=== PATIENT | male | born 1950 ===

== ENCOUNTER 2021-12-25 10:54 | Observation (INO) | payer OTHER ==
[~2021-12-25] VITALS: Ht 185.4 cm; Wt 91.0 kg
--- NOTE | 2021-12-25 10:54 | NUR ---
PT TO ROOM 3 VIA WC ABLE TO TRANSFER SELF TO STRETCHER.
[2021-12-25 11:33] LABS: HEMATOCRIT 44.6 % (39.0-50.0); HEMOGLOBIN 13.8 g/dl (14.0-18.0); IMMATURE GRANULOCYTES 0.1 % (0.0-5.0); MEAN CELL VOLUME 96.3 fL CALC (80.0-100.0); MEAN CORPUSCULAR HGB 29.8 pG CALC (26.0-32.0); MEAN CORPUSCULAR HGB CONC 30.9 g/dL CAL (32.0-36.0); NEUT# 4.72 thou/uL (1.82-7.42); RED BLOOD COUNT 4.63 mill/uL (4.70-6.10); RED CELL DISTRI WIDTH 13.7 % (11.5-15.5)
[2021-12-25] MEDS ORDERED: BACLOFEN10 MG PO (11:43)
[2021-12-25] MEDS ORDERED: LISINOPRIL10 MG PO (11:44)
[2021-12-25 11:46] LABS: ALBUMIN 4.2 g/dL (3.2-5.0); ALKALINE PHOSPHATASE 69 u/l (38-126); ANION GAP 13 (6-22 (CALC)); BILIRUBIN, TOTAL 0.4 mg/dL (0.0-1.4); BUN 26 mg/dL (8-23); BUN/CREATININE RATIO 25 (12-20 (CALC)); CARBON DIOXIDE 25 mmol/l (22-30); CHLORIDE 106 mmol/l (95-108); GFR > 60 ML/MIN (>=60 (CALC)); GFR FOR AFR.AMER. > 60 ML/MIN (>=60 (CALC)); POTASSIUM 4.5 mmol/l (3.5-5.1); SGOT/AST 20 u/l (19-48); SODIUM 140 mmol/l (137-146); TOTAL PROTEIN 7.2 g/dL (6.3-8.2)
[2021-12-25] MEDS ORDERED: LORATADINE10 M1 PO (11:47)
[2021-12-25] MEDS ORDERED: MELOXICAM7.5 MG PO (11:48)
[2021-12-25] MEDS ORDERED: LIPITOR20 MG PO (11:48)
--- NOTE | 2021-12-25 11:50 | NUR ---
Pt. sitting up in bed awake and alert. No distress noted. Officers x2 @ bedside.
[2021-12-25 11:59] LABS: MYOGLOBIN 39 ng/mL (0 - 121)
--- NOTE | 2021-12-25 12:30 | NUR ---
Pt. sitting up in bed awake and alert. No distress noted.
--- NOTE | 2021-12-25 13:30 | NUR ---
Pt. laying in bed awake and alert. Skin w/p/d. Resp easy and unlabored. No distress noted.
--- NOTE | 2021-12-25 14:00 | NUR ---
VSS PT CONTINUES ON CARDIZEM DRIP. IV SITE HEALTHY. DENIES PAIN /DISCOMFORT.
--- NOTE | 2021-12-25 14:23 | NUR ---
REPORT CALLED TO MS BETTINA AT [facility] , INFORMED NURSE THAT PT REQUESTS HIS YAN KWON BE NOTIFIED OF HIS HOSPITALIZATION. MRS DUNBAR STATES SHE WILL BE NOTIFIED.
--- NOTE | 2021-12-25 15:30 | NUR ---
PT TO ICU VIA WC ON CONSTRUCTION SCHEDULER, O2 2L/M NC, IV SITE HEALTHY.
[2021-12-25 17:30] VITALS: BP 114/72
[2021-12-25 18:30] VITALS: BP 110/74
--- NOTE | 2021-12-25 18:30 | NUR ---
PT CONTINUES AT REST IN THE BED, HR REMAINS AROUND 60-64. GUARDS X 2 AT BEDSIDE.
[2021-12-25 19:40] VITALS: BP 110/74
--- NOTE | 2021-12-25 19:40 | NUR ---
awake. no c/o voiced. monitoring tech shows sinus rhythm hr 64. #20 rac saline lock. po fluids taken well. voided per urinal. urine spec sent to lab. [place] conts to rt ankle. fall precautions cont. guards x2 @ bedside.
[2021-12-25 22:00] VITALS: BP 120/85
--- NOTE | 2021-12-25 22:00 | NUR ---
awake. watching tv. no c/o voiced.
[2021-12-26] VITALS (11 sets, daily range): BP systolic 105–146; BP diastolic 67–90
--- NOTE | 2021-12-26 00:01 | NUR ---
eyes closed. no distress. rn cardiac shows sinus rhythm hr 64.
--- NOTE | 2021-12-26 02:00 | NUR ---
resting quietly. resps even & unlabored. no apparent distress. bus driver/monitor shows sinus rhythm. guards x2 remain @ bedside. shackles cont.
--- NOTE | 2021-12-26 04:20 | NUR ---
lab here. blood drawn.
[2021-12-26 05:34] LABS: HEMATOCRIT 39.4 % (39.0-50.0); HEMOGLOBIN 12.2 g/dl (14.0-18.0); MEAN CORPUSCULAR HGB 30.3 pG CALC (26.0-32.0); RED BLOOD COUNT 4.02 mill/uL (4.70-6.10); RED CELL DISTRI WIDTH 14.3 % (11.5-15.5)
--- NOTE | 2021-12-26 05:59 | NUR ---
brand activation manager shows sinus rhythm hr 64. guards x2 remain @ bedside.
[2021-12-26 06:07] LABS: ANION GAP 8 (6-22 (CALC)); BUN 22 mg/dL (8-23); BUN/CREATININE RATIO 22 (12-20 (CALC)); CALCULATED LDLCHOLESTEROL 123 mg/dL (62-129 (CALC)); CARBON DIOXIDE 26 mmol/l (22-30); CHLORIDE 108 mmol/l (95-108); CHOLESTEROL HDL RATIO 4.9 (<4.4 (CALC)); GFR > 60 ML/MIN (>=60 (CALC)); GFR FOR AFR.AMER. > 60 ML/MIN (>=60 (CALC)); HDL CHOLESTEROL 36 mg/dL (>=40); POTASSIUM 4.5 mmol/l (3.5-5.1); SODIUM 138 mmol/l (137-146); TOTAL CHOLESTEROL 175 mg/dl (0-199); TOTAL TRIGLYCERIDES 80 mg/dl (30-149); VLDL CHOLESTROL 16 mg/dl (4-45 (CALC))
[2021-12-26 08:04] LABS: URINE BILIRUBIN - DIPSTICK NEGATIVE (NEGATIVE); URINE BLOOD DIPSTICK NEGATIVE (NEGATIVE); URINE CLARITY CLEAR; URINE COLOR YELLOW; URINE GLUCOSE - DIPSTICK NEGATIVE (NEGATIVE); URINE KETONE NEGATIVE (NEGATIVE); URINE LEUK ESTERASE NEGATIVE (Negative); URINE NITRITE - DIPSTICK NEGATIVE (Negative); URINE PH 5.5 (4.5-8.0); URINE PROTEIN - DIPSTICK NEGATIVE (NEG-TRACE); URINE SPECIFIC GRAVITY >=1.030; URINE UROBILINOGEN - DIPSTICK 0.2 E.U./dL (0.2)
--- NOTE | 2021-12-26 09:00 | NUR ---
PT SEEN AWAKE, ALERT, ORIENTED X 3. GUARDS X 2 AT BEDSIDE. MONITOR SHOWS SR IN THE 60s. NO COMPLAINT OF CHEST PAIN OR SHORTNESS OF BREATH.
[2021-12-26] MEDS ORDERED: ELIQUIS5 MG PO (12:11)
[2021-12-26] MEDS ORDERED: LOPRESSOR25 MG PO (12:11)
[2021-12-26] MEDS ORDERED: FLECAINIDE50 MG PO (12:11)
--- NOTE | 2021-12-26 13:26 | NUR ---
PT HAS BEEN DISCHARGED BACK TO [facility]. PT VERBALIZED UNDERSTANDING OF DC INSTRUCTIONS, WAS TAKEN BY WHEELCHAIR TO FACILITY VEHICLE. PT LE[facility] IN STABLE CONDITION, SINUS RHYTHM.
== END 2021-12-26 13:00 | disposition designated cancer center or children's hospital (05) | DRG 310 ==
LOC: ED 10:54 → ICU 13:48
PROVIDERS: Emergency Medicine; Nurse Practitioner; ADMIT Internal Medicine; ATTEND Internal Medicine
DX: I48.92 Unspecified atrial flutter (principal); I49.1 Atrial premature depolarization; I10 Essential (primary) hypertension; E78.5 Hyperlipidemia, unspecified; I69.998 Other sequelae following unspecified cerebrovascular disease; H53.8 Other visual disturbances; Z87.891 Personal history of nicotine dependence; Z20.822 Contact with and (suspected) exposure to COVID-19
CPT/HCPCS: J1650